=== PATIENT | female | born 1985 | race American Indian/Alaskan Native ===

== ENCOUNTER 2018-05-08 07:47 | Outpatient (CLI) | payer OTHER | END 2018-05-08 08:21 | disposition home or self-care (01) | LOC: NST 07:47 | DX: Z34.83 Encounter for supervision of other normal pregnancy, third trimester (principal) ==

== ENCOUNTER 2018-05-22 08:08 | Outpatient (CLI) | payer OTHER | END 2018-05-22 09:00 | disposition home or self-care (01) | LOC: NST 08:08 | DX: Z34.83 Encounter for supervision of other normal pregnancy, third trimester (principal) ==

== ENCOUNTER 2018-06-01 14:49 | Inpatient (IN) | payer OTHER ==
[~2018-06-01] VITALS: Ht 157.5 cm; Wt 68.5 kg
[~2018-06-01 14:49] MED LIST changes: -PRENATAL TABLE1 EACH PO
[2018-06-01] MEDS ORDERED: PRENATAL TABLE1 EACH PO (17:11)
== END 2018-06-03 12:50 | disposition home or self-care (01) | DRG 833 ==
LOC: LDR 14:49
PROVIDERS: ADMIT Obstetrics & Gynecology Maternal & Fetal Medicine
PROC: 4A1HXCZ Monitoring of Products of Conception, Cardiac Rate, External Approach (ICD-10-PCS; principal; 2018-06-01)
DX: O47.03 False labor before 37 completed weeks of gestation, third trimester (principal); J10.1 Influenza due to other identified influenza virus with other respiratory manifestations; Z34.03 Encounter for supervision of normal first pregnancy, third trimester

== ENCOUNTER → 2018-06-01 | Emergency (ER) | payer OTHER ==
[~2018-06-01] VITALS: Ht 157.5 cm; Wt 72.1 kg
[~2018-06-01] MED LIST: LOVENOX40 MG/0.4 SUBCUTANEO; PRENATAL TABLE1 EACH PO
== END | disposition left against medical advice (07) ==
LOC: ER 13:00
DX: Z53.20 Procedure and treatment not carried out because of patient's decision for unspecified reasons (principal)

== ENCOUNTER 2018-06-12 08:45 | Inpatient (IN) | payer OTHER ==
[~2018-06-12] VITALS: Ht 157.5 cm; Wt 70.8 kg
[~2018-06-12 08:45] MED LIST changes: +PRENATAL TABLE1 EACH PO
[2018-07-04] MEDS ORDERED: IRON325 MG PO (10:36)
== END 2018-07-06 11:08 | disposition home or self-care (01) | DRG 768 ==
LOC: OB/GYN 06-28 08:45 → LDR 07-04 04:48 → OB/GYN 07-04 04:48 → LDR 07-04 07:13 → OB/GYN 07-04 14:38
PROVIDERS: ADMIT Obstetrics & Gynecology Maternal & Fetal Medicine
PROC: 10D07Z6 Extraction of Products of Conception, Vacuum, Via Natural or Artificial Opening (ICD-10-PCS; principal; 2018-07-04)
PROC: 0DQR0ZZ Repair Anal Sphincter, Open Approach (ICD-10-PCS; 2018-07-04)
PROC: 10907ZC Drainage of Amniotic Fluid, Therapeutic from Products of Conception, Via Natural or Artificial Opening (ICD-10-PCS; 2018-07-04)
PROC: 0W8NXZZ Division of Female Perineum, External Approach (ICD-10-PCS; 2018-07-04)
PROC: 3E033VJ Introduction of Other Hormone into Peripheral Vein, Percutaneous Approach (ICD-10-PCS; 2018-07-04)
PROC: 4A1HXCZ Monitoring of Products of Conception, Cardiac Rate, External Approach (ICD-10-PCS; 2018-07-04)
DX: O70.21 Third degree perineal laceration during delivery, IIIa (principal); Z37.0 Single live birth; Z3A.39 39 weeks gestation of pregnancy

== ENCOUNTER 2018-06-19 07:47 | Outpatient (CLI) | payer OTHER | END 2018-06-19 08:37 | disposition home or self-care (01) | LOC: NST 07:47 | DX: Z34.83 Encounter for supervision of other normal pregnancy, third trimester (principal) ==

== ENCOUNTER 2018-07-03 07:15 | Outpatient (CLI) | payer OTHER ==
[2018-07-04] MEDS ORDERED: IRON325 MG PO (10:36)
== END 2018-07-03 08:12 | disposition home or self-care (01) ==
LOC: NST 07:15
DX: Z34.83 Encounter for supervision of other normal pregnancy, third trimester (principal)

== ENCOUNTER 2024-10-06 02:34 | Emergency (ER) | payer OTHER ==
[~2024-10-06] VITALS: Ht 162.6 cm; Wt 61.2 kg
[~2024-10-06 02:34] MED LIST changes: +IRON325 MG PO
[2024-10-06] MEDS ORDERED: METOCLOPRAMIDE HCL 5 MG/ML VIAL IM STA (03:09)
[2024-10-06] MEDS ORDERED: 0.9 % SODIUM CHLORIDE 1,000 ML IV STA (03:10)
[2024-10-06] MEDS ORDERED: HYOSCYAMINE SULFATE 0.125 MG TAB.SUBL ONE (03:12)
[2024-10-06] MEDS ORDERED: METOCLOPRAMIDE HCL 5 MG/ML VIAL ONE (03:12)
[2024-10-06] MEDS ORDERED: HYOSCYAMINE SULFATE 0.125 MG TAB.SUBL SL ONE (03:15)
[2024-10-06 03:54] LABS: NEUT % 93.2 % (34.0-71.1); RED CELL DISTRIBUTION WIDTH 13.9 % (11.6-14.4)
[2024-10-06 03:55] LABS: BASO % 0.3 % (0.1-1.2); EOS # 0.09 (0.04-0.54); EOS % 0.6 % (0.7-7.0); LYMPH # 0.51 (1.18-3.74); LYMPH % 3.2 % (19.3-53.1); MONO # 0.18 (0.24-0.82); MONO % 1.1 % (4.7-12.5); NEUT # 14.64 (1.56-6.13)
[2024-10-06 03:56] LABS: MEAN PLATELET VOLUME 10.50 fl (9.4-12.4)
[2024-10-06 04:00] LABS: BUN CREA RATIO 19.0 (7.0-25.0); CREATININE SERUM 0.48 mg/dL (0.55-1.02); GFR 145.52; GLUCOSE FASTING 96.0 mg/dL (65-100); OSMOLALITY SERUM 280.0 MOSM/KG (275-295)
== END 2024-10-06 05:30 | disposition home or self-care (01) ==
LOC: ER 02:34
DX: K52.89 Other specified noninfective gastroenteritis and colitis (principal); Z91.013 Allergy to seafood

== ENCOUNTER 2025-01-16 11:05 | Outpatient (CLI) | payer OTHER | END 2025-01-16 11:57 | disposition home or self-care (01) | LOC: NST 11:05 | PROVIDERS: ATTEND Obstetrics & Gynecology | DX: Z34.83 Encounter for supervision of other normal pregnancy, third trimester (principal) ==

== ENCOUNTER 2025-01-23 22:43 | Outpatient (CLI) | payer OTHER ==
[~2025-01-23] VITALS: Ht 157.5 cm; Wt 64.0 kg
[2025-01-23 22:44] VITALS: BP 107/59
[2025-01-23 22:50] VITALS: BP 107/59
[2025-01-23] MEDS ORDERED: MORPHINE SULFATE 4 MG/ML CARTRIDGE IV PRN (23:00)
[2025-01-23 23:44] VITALS: BP 91/51
[2025-01-24 04:05] VITALS: BP 97/56
[2025-01-24 07:29] VITALS: BP 98/61
[2025-01-24 09:53] VITALS: BP 93/61
== END 2025-01-24 09:58 | disposition home or self-care (01) ==
LOC: OBS/DEL 22:43
PROVIDERS: ATTEND Obstetrics & Gynecology Gynecology
DX: O26.893 Other specified pregnancy related conditions, third trimester (principal); Z3A.37 37 weeks gestation of pregnancy

== ENCOUNTER 2025-01-28 14:15 | Inpatient (IN) | payer OTHER ==
[~2025-01-28] VITALS: Ht 157.5 cm; Wt 64.4 kg
[2025-02-12 07:00] VITALS: BP 135/63
[2025-02-12] MEDS ORDERED: OXYTOCIN 20 UNITS/500ML RL PIGGYBAG IV ONE (07:58)
[2025-02-12 08:00] VITALS: BP 135/63
[2025-02-12] MEDS ORDERED: OXYTOCIN 1,000 ML IV ONE (08:15)
[2025-02-12 08:35] LABS: BASO % 0.6 % (0.1-1.2); EOS # 0.58 (0.04-0.54); EOS % 3.6 % (0.7-7.0); LYMPH # 1.98 (1.18-3.74); LYMPH % 12.4 % (19.3-53.1); MEAN PLATELET VOLUME 11.00 fl (9.4-12.4); MONO # 1.24 (0.24-0.82); MONO % 7.8 % (4.7-12.5); NEUT # 11.74 (1.56-6.13); NEUT % 73.5 % (34.0-71.1); RED CELL DISTRIBUTION WIDTH 14.5 % (11.6-14.4)
[2025-02-12 09:11] LABS: INR 0.95
[2025-02-12] MEDS ORDERED: OXYTOCIN 500 ML IV SCH (09:15)
[2025-02-12 09:25] LABS: ALT/SGPT 21.0 U/L (12-78); AST/SGOT 22.0 U/L (15-37); BILIRUBIN TOTAL 0.44 mg/dL (0.3-1.2); BUN CREA RATIO 11.0 (7.0-25.0); CREATININE SERUM 0.53 mg/dL (0.55-1.02); GFR 129.8; GLOBULINA 4.0 G/DL (2.4-3.5); GLUCOSE FASTING 67.0 mg/dL (65-100); OSMOLALITY SERUM 277.0 MOSM/KG (275-295)
[2025-02-12] MEDS ORDERED: ERYTHROMYCIN BASE OPHT 1GM EACH TUBE OP ONE (11:04)
[2025-02-12] MEDS ORDERED: CHLORHEXIDINE GLUCONATE 120 ML BOTTLE TOP ONE ×2 (11:05→12:00)
[2025-02-12] MEDS ORDERED: OXYTOCIN 20 UNITS/1000ML RL PIGGYBAG IV ONE (11:05)
[2025-02-12] MEDS ORDERED: LIDOCAINE HCL 1% 10ML VIAL ONE (11:05)
[2025-02-12] MEDS ORDERED: MORPHINE SULFATE 4 MG/ML CARTRIDGE IV PRN (11:45)
[2025-02-12] MEDS ORDERED: OXYTOCIN 1,000 ML IV SCH (12:00)
[2025-02-12 13:54] VITALS: BP 101/66
[2025-02-12 15:38] VITALS: BP 90/60; O2SAT 99
[2025-02-12 16:00] VITALS: BP 96/60
[2025-02-13 00:16] VITALS: BP 90/56
[2025-02-13 07:03] LABS: BASO % 0.5 % (0.1-1.2); EOS # 0.49 (0.04-0.54); EOS % 2.6 % (0.7-7.0); LYMPH # 2.79 (1.18-3.74); LYMPH % 15.1 % (19.3-53.1); MEAN PLATELET VOLUME 11.30 fl (9.4-12.4); MONO # 1.44 (0.24-0.82); MONO % 7.8 % (4.7-12.5); NEUT # 13.40 (1.56-6.13); NEUT % 72.3 % (34.0-71.1); RED CELL DISTRIBUTION WIDTH 14.5 % (11.6-14.4)
[2025-02-13 08:00] VITALS: BP 100/60
[2025-02-13 20:35] VITALS: BP 102/66
[2025-02-14] VITALS: BP 94/63
[2025-02-14 08:58] VITALS: BP 99/64
== END 2025-02-14 13:41 | disposition home or self-care (01) | DRG 807 ==
LOC: LDR 02-12 05:03 → OB/GYN 02-12 12:19
PROVIDERS: Obstetrics & Gynecology Gynecology; ADMIT Obstetrics & Gynecology; ATTEND Obstetrics & Gynecology
PROC: 10E0XZZ Delivery of Products of Conception, External Approach (ICD-10-PCS; principal; 2025-02-12)
PROC: 0UQG7ZZ Repair Vagina, Via Natural or Artificial Opening (ICD-10-PCS; 2025-02-12)
PROC: 4A1HXCZ Monitoring of Products of Conception, Cardiac Rate, External Approach (ICD-10-PCS; 2025-02-12)
DX: O71.4 Obstetric high vaginal laceration alone (principal); Z37.0 Single live birth; Z3A.40 40 weeks gestation of pregnancy

== ENCOUNTER 2025-02-07 11:10 | Outpatient (CLI) | payer OTHER | END 2025-02-07 12:04 | disposition home or self-care (01) | LOC: NST 11:10 | PROVIDERS: ATTEND Obstetrics & Gynecology | DX: Z34.83 Encounter for supervision of other normal pregnancy, third trimester (principal) ==

== ENCOUNTER 2025-02-10 13:35 | Outpatient (CLI) | payer OTHER | END 2025-02-10 15:06 | disposition home or self-care (01) | LOC: NST 13:35 | PROVIDERS: ATTEND Obstetrics & Gynecology Gynecology | DX: Z34.83 Encounter for supervision of other normal pregnancy, third trimester (principal) ==